=== PATIENT | female | born 1990 | race Caucasian/White ===

== ENCOUNTER 2016-12-15 10:27 | Emergency (ER) | payer OTHER ==
[2016-12-15 10:36] VITALS: BP 123/86; PULSE 84; TEMP 98; BMI 27.1
[2016-12-15] MEDS ORDERED: IBUPROFEN 600 MG TABLET (FP) PO ONE ×2 (11:16→11:23)
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
[2016-12-15] MEDS ORDERED: DIPHTH,PERTUSS(ACELL),TET 0.5 ML DISP.SYRIN IM ONE (11:35)
== END 2016-12-15 11:43 | disposition home or self-care (01) ==
LOC: JERFT 10:27
DX: T25.021A Burn of unspecified degree of right foot, initial encounter (principal); X12.XXXA Contact with other hot fluids, initial encounter; Y93.89 Activity, other specified; Y92.89 Other specified places as the place of occurrence of the external cause; Y99.0 Civilian activity done for income or pay
CPT/HCPCS: 90715; 99281-25

== ENCOUNTER 2019-09-13 18:12 | Emergency (ER) | payer OTHER ==
[2019-09-13] MEDS ORDERED: ONDANSETRON *ODT* 4 MG TABLET SL ONE (18:16)
--- NOTE | 2019-09-13 18:16 | PDOC ---
Rapid Medical Evaluation Time Seen by Provider: 09/13/19 18:13 Medical Evaluation: Allergies Allergy/AdvReac Type Severity Reaction Status Date / Time No Known Drug Allergies Allergy Verified 12/15/16 10:32 09/13/19 18:14 Pt c/o: abd pain since friday , vomiting, tolerating fluids, normal menstrual cycle, no sick contacts, no travel administrator on brief exam: vss, epi gastric tenderness pt ordered for: labs, urine, zofran Pt to proceed to the ED Discharge Disposition - Diagnosis Abdominal pain - Discharge Dispostion Disposition: HOME Condition at time of disposition: Stable - Prescriptions Prescriptions: Mag Hydrox/Al Hydrox/Simeth [Mylanta Suspension -] 30 ml PO Q6H PRN #1 bottle PRN Reason: Gas - Referrals Referrals: Keaton Hartman MD [Staff Physician] - Call tomorrow - Patient Instructions Printed Discharge Instructions: [place] Diet Additional Instructions: it is very important that you follow-up with your doctor or a inventory clerk as soon as possible. Take Maalox as prescribed. Return to the emergency room for any worsening symptoms - Post Discharge Activity Work/School Note: Back to Work
[2019-09-13 18:17] VITALS: BP 122/86; PULSE 94; TEMP 99; BMI 54.2
[2019-09-13] MEDS ORDERED: ONDANSETRON *ODT* 4 MG TABLET ONE (21:58)
[2019-09-13] MEDS ORDERED: MAG HYDROX/AL HYDROX/SIMETH 30 ML UNIT-DOSE CUP PO ONE (22:00)
[2019-09-13] MEDS ORDERED: FAMOTIDINE 10 MG TABLET PO ONE (22:00)
[2019-09-13] MEDS ORDERED: FAMOTIDINE 10 MG TABLET ONE (22:08)
[2019-09-13] MEDS ORDERED: MAG HYDROX/AL HYDROX/SIMETH 30 ML UNIT-DOSE CUP ONE (22:08)
--- NOTE | 2019-09-13 22:37 | PDOC ---
History of Present Illness - General Chief Complaint: Pain, Acute Stated Complaint: ABD PAIN Time Seen by Provider: 09/13/19 18:13 History Source: Patient Exam Limitations: Language Barrier ([employer] ledge man service was used for this visit) - History of Present Illness Initial Comments: 09/13/19 23:09 28-year-old female complaining of epigastric pain and nausea for 1 day. Patient reports vomiting couple of times today and unable to eat anything due to the nausea. No past medical history. denie sfever/ chills, diarrhea, llower abdominal pain, flank pain Past History - Past Medical History Allergies/Adverse Reactions: Allergies Allergy/AdvReac Type Severity Reaction Status Date / Time No Known Drug Allergies Allergy Verified 12/15/16 10:32 Home Medications: Ambulatory Orders Ibuprofen [Motrin -] 600 mg PO TID PRN #21 tablet 12/15/16 Mag Hydrox/Al Hydrox/Simeth [Mylanta Suspension -] 30 ml PO Q6H PRN #1 bottle Asthma: No Cancer: No Cardiac Disorders: No COPD: No Diabetes: No HTN: No Seizures: No Thyroid Disease: No - Immunization History Immunization Up to Date: No - Psycho Social/Smoking Cessation Hx Smoking History: Never smoked Have you smoked in the past 12 months: No Information on smoking cessation initiated: No Hx Alcohol Use: No Drug/Substance Use Hx: No Hx Substance Use Treatment: No *Physical Exam - Vital Signs Last Vital Signs Temp Pulse Resp BP Pulse Ox 99.0 F 94 H 18 122/86 100 09/13/19 18:14 09/13/19 18:14 09/13/19 18:14 09/13/19 18:14 09/13/19 18:14 - Physical Exam General Appearance: Yes: Appropriately Dressed Respiratory/Chest: positive: Lungs Clear, Normal Breath Sounds Cardiovascular: positive: Regular Rhythm, Regular Rate Gastrointestinal/Abdominal: positive: Normal Bowel Sounds, Tender (epigastric pain, no lower abdominal pain) Neurologic: positive: Fully Oriented, Alert, Normal Mood/Affect ED Treatment Course - LABORATORY CBC & Chemistry Diagram: 09/13/19 21:56 - Medications Given in the ED: ED Medications Discontinued Medications Generic Name Dose Route Start Last Admin Trade Name Freq PRN Reason Stop Dose Admin Al Hydroxide/Mg Hydroxide 30 ml 09/13/19 22:00 09/13/19 22:22 Mylanta Oral Suspension - PO 09/13/19 22:01 30 ml ONCE ONE Administration Famotidine 10 mg 09/13/19 22:00 09/13/19 22:22 Acid Deburrer Machine PO 09/13/19 22:01 10 mg ONCE ONE Administration Ondansetron HCl 4 mg 09/13/19 18:16 09/13/19 22:02 Zofran Odt - SL 09/13/19 18:17 4 mg ONCE ONE Administration ED Progress Note - Progress Note Progress Note: 09/13/19 23:30 A: gastritis P: ua urine CBC: leukocytocysis zofran maalox pepcid Medical Decision Making - Medical Decision Making 09/14/19 patient has no abdominal pain. will d/c home. strict return precautions reviewed with patient via [employer] ledge man services Discharge - Discharge Information Problems reviewed: Yes Clinical Impression/Diagnosis: Abdominal pain Qualifiers: Abdominal location: epigastric Qualified Code(s): R10.13 - Epigastric pain Condition: Stable Disposition: HOME - Additional Discharge Information Prescriptions: Mag Hydrox/Al Hydrox/Simeth [Mylanta Suspension -] 30 ml PO Q6H PRN #1 bottle PRN Reason: Gas - Follow up/Referral Referrals: Keaton Hartman MD [Staff Physician] - Call tomorrow - Patient Discharge Instructions Patient Printed Discharge Instructions: [place] Diet Additional Instructions: it is very important that you follow-up with your doctor or a talent management manager as soon as possible. Take Maalox as prescribed. Return to the emergency room for any worsening symptoms - Post Discharge Activity Work/Back to School Note: Back to Work
[2019-09-13 23:35] LABS: URINE APPEARANCE CLEAR; URINE BILIRUBIN NEGATIVE (NEGATIVE); URINE COLOR YELLOW; URINE GLUCOSE (UA) NEGATIVE (NEGATIVE); URINE KETONE NEGATIVE (NEGATIVE); URINE LEUK ESTERASE NEGATIVE (NEGATIVE); URINE NITRITE NEGATIVE (NEGATIVE); URINE PROTEIN NEGATIVE (NEGATIVE); URINE UROBILINOGEN 0.2 mg/dL (0.2-1.0)
[2019-09-14 01:24] LABS: BASO % 0.2 % (0-2.0); EOS % 2.5 % (0-4.5); HEMATOCRIT 42.5 % (32.4-45.2); MCH 30.6 pg (25.7-33.7); MEAN CELL VOLUME 92.9 fl (80-96); MEAN PLT VOLUME 9.8 fl (7.5-11.1); MONO % 6.1 % (3.8-10.2); NEUT % 82.2 % (42.8-82.8); PLATELET COUNT 306 K/MM3 (134-434); RBC 4.57 M/mm3 (3.60-5.2); RDW 12.9 % (11.6-15.6); WHITE BLOOD COUNT 16.2 K/mm3 (4.0-10.0)
== END 2019-09-14 03:00 | disposition home or self-care (01) ==
LOC: JER 18:12
DX: K29.70 Gastritis, unspecified, without bleeding (principal); R10.13 Epigastric pain
CPT/HCPCS: 36415; 81003; 84703; 85025; 87086; 99283-25; Q0162

== ENCOUNTER 2022-07-09 10:07 | Emergency (ER) | payer OTHER ==
[2022-07-09 10:13] VITALS: BP 130/83; PULSE 79; RESP 20; TEMP 98.3; BMI 25.2
[2022-07-09] MEDS ORDERED: ACETAMINOPHEN 500 MG TABLET (FP) PO ONE (10:27)
[2022-07-09] MEDS ORDERED: metroNIDAZOLE 500 MG TABLET PO ONE (10:38)
[2022-07-09 12:06] LABS: EPI CELLS 8 /uL (0-25.1); HYALINE CASTS 0 /uL (0-3.1); URINE APPEARANCE CLEAR; URINE BACTERIA 35 /uL (0-1359); URINE BILIRUBIN NEGATIVE (NEGATIVE); URINE COLOR YELLOW; URINE GLUCOSE (UA) NEGATIVE (NEGATIVE); URINE KETONE NEGATIVE (NEGATIVE); URINE LEUK ESTERASE TRACE (NEGATIVE); URINE NITRITE NEGATIVE (NEGATIVE); URINE PROTEIN NEGATIVE (NEGATIVE); URINE RBC 11 /uL (0-23.9); URINE UROBILINOGEN 0.2 mg/dL (0.2-1.0); URINE WBC 2 /uL (0-25.8)
[2022-07-09 12:09] LABS: HCG,QUALITATIVE URINE Negative
== END 2022-07-09 15:01 | disposition home or self-care (01) ==
LOC: JER 10:07
DX: N77.1 Vaginitis, vulvitis and vulvovaginitis in diseases classified elsewhere (principal); R10.2 Pelvic and perineal pain
CPT/HCPCS: 76830-TC; 81003; 84703; 87086; 99284-25